=== PATIENT | male | born 1935 | race Two or more races ===

== ENCOUNTER 2018-02-26 02:26 | Emergency (ER) | payer MEDICARE, BC ==
[~2018-02-26] VITALS: Ht 177.8 cm; Wt 71.7 kg
[~2018-02-26 02:26] MED LIST: ALLOPURINOL100 M1 ORAL; AMARYL4 MG ORAL; ASPIRIN EC81 MG ORAL; CARVEDILOL3.125 MG ORAL; CRESTOR10 M1 ORAL; FISH OIL300 M1 PO; JANUVIA50 MG ORAL; MAGNESIUM100 MG PO; NORVASC5 MG ORAL; VITAMIN D1000 UNI1 ORAL
[2018-02-26] MEDS ORDERED: GLIMEPIRIDE1 MG ORAL (02:41)
[2018-02-26] MEDS ORDERED: ASPIR 8181 MG ORAL (02:41)
[2018-02-26] MEDS ORDERED: AMLODIPINE BES2.5 MG ORAL (02:41)
[2018-02-26] MEDS ORDERED: JANUVIA25 MG ORAL (02:41)
--- NOTE | 2018-02-26 02:59 | Emergency Room Report ---
History of Present Illness General Chief Complaint: Abdominal Pain Source: Patient Present Illness HPI Patient is an 82-year-old male who presented after increased abdominal discomfort as well as nausea and vomiting. Patient was having increased epigastric pain. The pain did not radiate. He had not been having any diarrhea. Patient reports having the prior history of recent cystoscopy. Patient had not been having any fever. He reportedly had vomited nighttime medications. Patient is diabetic. Allergies: Coded Allergies: No Known Allergies (Unverified , 08/21/14) Patient History Past Medical History: see triage record Reviewed Nursing Documentation: PMH: Agreed; PSxH: Agreed Nursing Documentation-PMH Hx Cardiac Problems: Yes Hx Hypertension: Yes Hx Diabetes: Yes Hx Cancer: No Hx Gastrointestinal Problems: Yes Hx Neurological Problems: No Hx Cerebrovascular Accident: No - gout Review of Systems All Other Systems: negative except mentioned in HPI Physical Exam Vital Signs Date Time Temp Pulse Resp B/P (MAP) Pulse Ox O2 Delivery O2 Flow Rate FiO2 02/26/18 02:33 98.0 90 16 136/78 94 Room Air 98.1 Sp02 EP Interpretation: reviewed, normal General Appearance: normal inspection, well appearing, no apparent distress, alert, GCS 15, non-toxic, Chronically Ill Head: atraumatic Eyes: bilateral eye other - left eye corneal scarring ENT: normal ENT inspection, hearing grossly normal, normal voice, moist mucus membranes Neck: normal inspection, supple, no bony tend, limited range of motion Respiratory: normal inspection, lungs clear, normal breath sounds, no respiratory distress, no retraction, no wheezing Cardiovascular #1: regular rate, rhythm, no edema Gastrointestinal: non tender, soft, no guarding, no pulsatile mass, no rebound , distended Genitourinary: no CVA tenderness Musculoskeletal: normal inspection, back normal, normal range of motion Neurologic: normal inspection, alert, oriented x3, responsive, 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 Differential diagnoses included ischemic bowel, appendicitis, perforated viscus, abdominal aortic aneurysm, inferior myocardial infarction, viral gastroenteritis. Because of complexity of patient' s case laboratory testing and imaging studies were ordered. The patient was a noted to have epigastric discomfort which appears to be colicky in nature. The patient initially reported that he had not had any recent imaging. The subsequently the daughter produce results of MRI report which showed a 2 cm cystic area in his pancreas as well as exophytic lesion to his left kidney. The patient has had reported history elevated creatinine. The patient given IV fluids as well as initial IV antibiotics.The WBC was noted be normal. Patient's urinalysis showed evidence of urinary infection. The patient's lipase was noted to be somewhat elevated which is concerning in the patient's prior pancreatic imaging lesion. Patient was offered admission and declined.the patient was advised. Patient is advised follow-up with Dr. Garcia for further evaluation of pancreatic lesion. The patient was additionally advised to follow-up with his urologist for repeat evaluation as needed recheck of urine. The patient is given prescription for Zofran as well as Keflex. Return precautions were given. Labs Test 02/26/18 03:15 White Blood Count 10.4 K/UL (4.8-10.8) Red Blood Count 5.16 M/UL (4.70-6.10) Hemoglobin 16.1 G/DL (14.2-18.0) Hematocrit 45.9 % (42.0-52.0) Mean Corpuscular Volume 89 FL (80-99) Mean Corpuscular Hemoglobin 31.2 PG (27.0-31.0) Mean Corpuscular Hemoglobin Concent 35.1 G/DL (32.0-36.0) Red Cell Distribution Width 13.1 % (11.6-14.8) Platelet Count 141 K/UL (150-450) Mean Platelet Volume 9.4 FL (6.5-10.1) Neutrophils (%) (Auto) % (45.0-75.0) Lymphocytes (%) (Auto) % (20.0-45.0) Monocytes (%) (Auto) % (1.0-10.0) Eosinophils (%) (Auto) % (0.0-3.0) Basophils (%) (Auto) % (0.0-2.0) Prothrombin Time 10.0 SEC (9.30-11.50) Prothromb Time International Ratio 1.0 (0.9-1.1) Activated Partial Thromboplast Time 28 SEC (23-33) Urine Color Pale yellow Urine Appearance Clear Urine pH 6.5 (4.5-8.0) Urine Specific [place] 1.015 (1.005-1.035) Urine Protein 3+ (NEGATIVE) Urine Glucose (UA) Negative (NEGATIVE) Urine Ketones 1+ (NEGATIVE) Urine Occult Blood 1+ (NEGATIVE) Urine Nitrite Negative (NEGATIVE) Urine Bilirubin Negative (NEGATIVE) Urine Urobilinogen Normal MG/DL (0.0-1.0) Urine Leukocyte Esterase 1+ (NEGATIVE) Urine RBC 5-10 /HPF (0 - 0) Urine WBC 5-10 /HPF (0 - 0) Urine Squamous Epithelial Cells Occasional /LPF Urine Bacteria Few /HPF (NONE) Sodium Level 137 MMOL/L (136-145) Potassium Level 4.1 MMOL/L (3.5-5.1) Chloride Level 100 MMOL/L (98-107) Carbon Dioxide Level 27 MMOL/L (21-32) Anion Gap 11 mmol/L (5-15) Blood Urea Nitrogen 32 mg/dL (7-18) Creatinine 1.7 MG/DL (0.55-1.30) Estimat Glomerular Filtration Rate mL/min (>60) Glucose Level 202 MG/DL (74-106) Lactic Acid Level 1.20 mmol/L (0.66-2.22) Calcium Level 9.2 MG/DL (8.5-10.1) Total Bilirubin 0.8 MG/DL (0.2-1.0) Aspartate Amino Transf (AST/SGOT) 20 U/L (15-37) Alanine Aminotransferase (ALT/SGPT) 28 U/L (12-78) Alkaline Phosphatase 88 U/L (46-116) Total Protein 8.1 G/DL (6.4-8.2) Albumin 3.8 G/DL (3.4-5.0) Globulin 4.3 g/dL Albumin/Globulin Ratio 0.9 (1.0-2.7) Lipase 402 U/L (73-393) EKG Diagnostic Results Rate: normal Rhythm: NSR ST Segments: no acute changes ASA given to the pt in ED: No Rhythm Strip Diag. Results EP Interpretation: yes Rhythm: NSR, no PVC's, no ectopy Last Vital Signs Date Time Temp Pulse Resp B/P (MAP) Pulse Ox O2 Delivery O2 Flow Rate FiO2 02/26/18 02:33 98.0 90 16 136/78 94 Room Air 98.1 Status: improved Disposition: HOME, SELF-CARE Condition: Stable Scripts Cephalexin* (KEFLEX*) 500 Mg Capsule 500 MG ORAL Q6H, #28 CAP 0 Refills Prov: Mark Ames 02/26/18 Ondansetron Odt* (ZOFRAN ODT*) 4 Mg Tab.rapdis 4 MG ORAL Q6H PRN for Nausea & Vomiting, #30 TAB 0 Refills Prov: Mark Ames 02/26/18 Referrals: NOT CHOSEN IPA/,REFERRING (PCP) Mark Ames Feb 26, 2018 02:59
[2018-02-26] MEDS ORDERED: Isovue 100 ml bottle INJ PRN (03:00)
[2018-02-26 03:27] VITALS: BP 139/74
[2018-02-26 03:42] LABS: APPEARANCE,URINE CLEAR; BILIRUBIN, URINE NEGATIVE (NEGATIVE); COLOR,URINE PALE YELLOW; GLUCOSE, URINE (UA) NEGATIVE (NEGATIVE); KETONES,URINE 1+ (NEGATIVE); LEUKOCYTE ESTERASE ,URINE 1+ (NEGATIVE); NITRITE,URINE NEGATIVE (NEGATIVE); PH,URINE 6.5 (4.5-8.0); PROTEIN,URINE 3+ (NEGATIVE); UROBILINOGEN,URINE NORMAL MG/DL (0.0-1.0)
[2018-02-26 03:52] LABS: ANION GAP 11 mmol/L (5-15); BLOOD UREA NITROGEN 32 mg/dL (7-18); CALCIUM 9.2 MG/DL (8.5-10.1); CARBON DIOXIDE 27 MMOL/L (21-32); CHLORIDE 100 MMOL/L (98-107); CREATININE 1.7 MG/DL (0.55-1.30); POTASSIUM 4.1 MMOL/L (3.5-5.1); SODIUM 137 MMOL/L (136-145)
[2018-02-26 03:57] LABS: ALANINE AMINOTRANSFERASE 28 U/L (12-78); ALBUMIN 3.8 G/DL (3.4-5.0); ALBUMIN/GLOBULIN RATIO 0.9 (1.0-2.7); ALKALINE PHOSPHATASE 88 U/L (46-116); ASPARTATE AMINO TRANSFERASE 20 U/L (15-37); BILIRUBIN,TOTAL 0.8 MG/DL (0.2-1.0)
[2018-02-26 04:01] LABS: HEMATOCRIT 45.9 % (42.0-52.0); HEMOGLOBIN 16.1 G/DL (14.2-18.0); MEAN CORPUSCULAR VOLUME 89 FL (80-99); PLATELET COUNT 141 K/UL (150-450); RED BLOOD COUNT 5.16 M/UL (4.70-6.10); RED CELL DISTRIBUTION WIDTH 13.1 % (11.6-14.8); WHITE BLOOD COUNT 10.4 K/UL (4.8-10.8)
[2018-02-26] MEDS ORDERED: Sodium Chloride 500ML 500 ML IV ONE (04:15)
[2018-02-26] MEDS ORDERED: cefTRIAXone 1 GM in NS 55 ML IVPB ONE (04:30)
[2018-02-26 04:40] VITALS: BP 132/64
[2018-02-26] MEDS ORDERED: KEFLEX500 MG ORAL (04:41)
[2018-02-26] MEDS ORDERED: ZOFRAN ODT4 MG ORAL (04:41)
[2018-02-26 04:59] VITALS: BP 132/64
== END 2018-02-26 04:59 | disposition home or self-care (01) ==
LOC: EMR 02:56
DX: E11.9 Type 2 diabetes mellitus without complications (principal); R11.2 Nausea with vomiting, unspecified; R10.13 Epigastric pain; R10.9 Unspecified abdominal pain; I10 Essential (primary) hypertension; D12.6 Benign neoplasm of colon, unspecified; N28.9 Disorder of kidney and ureter, unspecified
CPT/HCPCS: 36415; 80053; 81003; 82962; 83605; 83690; 85007; 85025; 85610; 85730; 86850; 86900; 86901; 93005; 96374; 96375; 99284; J0696; J2405